=== PATIENT | male | born 1955 | race Caucasian/White ===

== ENCOUNTER 2017-02-09 09:39 | Emergency (ER) | payer BC ==
[2017-02-09 09:46] VITALS: RESP 16
--- NOTE | 2017-02-09 09:56 | CPEKG ---
Heart Rate: 79 RR Interval: 759 P-R Interval: 104 QRSD Interval: 86 QT Interval: 360 QTC Interval: 413 P [place]: 54 QRS [place]: 69 T Wave [place]: 68 EKG Severity - ABNORMAL ECG - EKG Impression: POSSIBLE ATRIAL ARRHYTHMIA, A-RATE 208 Electronically Signed By: Darron Keene 09-Feb-2017 10:16:39
[2017-02-09] MEDS ORDERED: ASPIRIN 81 MG CHEWABLE TAB PO ONE (10:00)
--- NOTE | 2017-02-09 10:20 | EDPHY ---
H & P Time Seen by Provider: 02/09/17 09:53 HPI/ROS: CHIEF COMPLAINT: Chest pain HISTORY OF PRESENT ILLNESS: Patient presents with left-sided chest pain which woke him up this morning in the middle of the night. He was in [place] and flew back last Wednesday. He described left-sided mild sharp chest pain near his left nipple which he says is "not bad unless I take a deep breath." Not associated with nausea or shortness of breath or arm or jaw symptoms. No fever or chills. Not coughing. No leg swelling. REVIEW OF SYSTEMS: Eye: no change in vision ENT: no sore throat Cardiac: HPI Pulmonary: no cough or SOB Abdomen: no vomiting, diarrhea, abdominal pain Musculoskeletal: No leg pain Skin: no rash Neuro: no headache Constitutional: no fever : no urinary symptoms A comprehensive 10 point review of systems is otherwise negative aside from elements mentioned in the history of present illness. PAST MEDICAL HISTORY: Includes laser surgery on his eyes and irritable bowel. Negative for diabetes or hypercholesterolemia or hypertension. Social history: Nonsmoker, no cocaine. No family history of venous thromboembolism. General Appearance: Alert and conversant, cooperative. Eyes: No scleral icterus. ENT, Mouth: Normal mucous membranes. Respiratory: Normal respiratory effort, breath sounds equal, lungs are clear to auscultation. Splinting slightly. Cardiovascular: Regular rate and rhythm. Gastrointestinal: Abdomen is soft and non tender. Neurological: Alert and oriented x3. Normally conversant. Face symmetric, normal movement and sensation in all extremities. Skin: Warm and dry, no rashes. Musculoskeletal: No calf tenderness. Psychiatric: Not agitated. Emergency Department course/MDM: History would certainly be atypical and low likelihood for acute coronary syndrome. Recent travel makes pulmonary embolism possible but low pretest probability. Plan for troponin and chest x-ray and D-dimer. 1135: Results discussed, likely muscular or pleurisy, stable for discharge. I think acute coronary syndrome is unlikely. Smoking Status: Never smoked Constitutional: Initial Vital Signs Temperature (C) 37 C 02/09/17 09:44 Heart Rate 80 02/09/17 09:44 Respiratory Rate 16 02/09/17 09:44 Blood Pressure 119/65 02/09/17 09:44 O2 Sat (%) 98 02/09/17 09:44 O2 Delivery Mode Room Air Allergies/Adverse Reactions: No Known Allergies Allergy (Unverified 02/09/17 09:47) Home Medications: Medication Instructions Recorded Elavi 02/09/17 Medical Decision Making - Diagnostics EKG Interpretation: 12-lead EKG interpreted by me; official reading is in trace master. My interpretation is sinus rhythm rate 79 no acute ischemic changes Imaging Results: Imaging Impressions Chest X-Ray 02/09/17 10:12 Impression: Clear lungs. No acute process. Differential Diagnosis: Differential diagnosis considered for chest pain including but not limited to myocardial ischemia, aortic dissection, pericarditis, pulmonary embolus, chest wall pain, pleural inflammation and pulmonary infectious causes. - Data Points Laboratory Results: Laboratory Results 02/09/17 10:00 02/09/17 10:00 02/09/17 02/09/17 02/09/17 10:20 10:00 10:00 WBC RBC Hgb Hct MCV MCH MCHC RDW Plt Count MPV Neut % (Auto) Lymph % (Auto) Coleman % (Auto) Eos % (Auto) Baso % (Auto) Nucleat RBC Rel Count Absolute Neuts (auto) Absolute Lymphs (auto) Absolute Monos (auto) Absolute Eos (auto) Absolute Basos (auto) Absolute Nucleated RBC Immature Gran % Immature Gran # D-Dimer < 0.27 ug/mLFEU ug/mLFEU REJ (0.00-0.50) Sodium 138 mEq/L mEq/L (134-144) Potassium 4.0 mEq/L mEq/L (3.5-5.2) Chloride 101 mEq/L mEq/L (97-110) Carbon Dioxide 25 mEq/l mEq/l (22-31) Anion Gap 12 mEq/L mEq/L (8-16) BUN 24 mg/dL H mg/dL (7-23) Creatinine 1.0 mg/dL mg/dL (0.7-1.3) Estimated GFR > 60 Glucose 76 mg/dL mg/dL (70-100) Calcium 9.4 mg/dL mg/dL (8.5-10.4) Troponin I < 0.012 ng/mL ng/mL (0-0.034) 02/09/17 10:00 WBC 6.96 10^3/uL 10^3/uL (3.80-9.50) RBC 5.06 10^6/uL 10^6/uL (4.40-6.38) Hgb 16.0 g/dL g/dL (13.7-17.5) Hct 46.4 % % (40.0-51.0) MCV 91.7 fL fL (81.5-99.8) MCH 31.6 pg pg (27.9-34.1) MCHC 34.5 g/dL g/dL (32.4-36.7) RDW 12.3 % % (11.5-15.2) Plt Count 230 10^3/uL 10^3/uL (150-400) MPV 10.5 fL fL (8.7-11.7) Neut % (Auto) 77.5 % H % (39.3-74.2) Lymph % (Auto) 12.2 % L % (15.0-45.0) Coleman % (Auto) 7.8 % % (4.5-13.0) Eos % (Auto) 1.3 % % (0.6-7.6) Baso % (Auto) 0.9 % % (0.3-1.7) Nucleat RBC Rel Count 0.0 % % (0.0-0.2) Absolute Neuts (auto) 5.40 10^3/uL 10^3/uL (1.70-6.50) Absolute Lymphs (auto) 0.85 10^3/uL L 10^3/uL (1.00-3.00) Absolute Monos (auto) 0.54 10^3/uL 10^3/uL (0.30-0.80) Absolute Eos (auto) 0.09 10^3/uL 10^3/uL (0.03-0.40) Absolute Basos (auto) 0.06 10^3/uL 10^3/uL (0.02-0.10) Absolute Nucleated RBC 0.00 10^3/uL 10^3/uL (0-0.01) Immature Gran % 0.3 % % (0.0-1.1) Immature Gran # 0.02 10^3/uL 10^3/uL (0.00-0.10) D-Dimer Sodium Potassium Chloride Carbon Dioxide Anion Gap BUN Creatinine Estimated GFR Glucose Calcium Troponin I Medications Given: Discontinued Medications Aspirin (Aspirin) 324 mg PO EDNOW ONE Stop: 02/09/17 10:01 Last Admin: 02/09/17 10:04 Dose: 324 mg Ibuprofen (Motrin) 600 mg PO EDNOW ONE Stop: 02/09/17 11:35 Last Admin: 02/09/17 11:50 Dose: 600 mg Departure - Departure Disposition: Home, Routine, Self-Care Clinical Impression: Chest pain Qualifiers: Chest pain type: unspecified Qualified Code(s): R07.9 - Chest pain, unspecified Condition: Good Instructions: Chest Pain (ED) Referrals: Viridiana Carrillo MD [Primary Care Provider] - As per Instructions
[2017-02-09 10:24] LABS: % IMMATURE GRANULYOCYTES 0.3 % (0.0-1.1); ABSOLUTE IMMATURE GRANULOCYTES 0.02 10^3/uL (0.00-0.10); ADD DIFF? NO; ADD MORPH? NO; ADD SCAN? NO; ATYPICAL LYMPHOCYTE FLAG 0 (0-99); FRAGMENT RBC FLAG 0 (0-99); HEMATOCRIT 46.4 % (40.0-51.0); LEFT SHIFT FLG 0 (0-99); LIPEMIA HEMOLYSIS FLAG 90 (0-99); MEAN CELL HEMOGLOBIN 31.6 pg (27.9-34.1); MEAN CELL HEMOGLOBIN CONCENTR. 34.5 g/dL (32.4-36.7); MEAN CELL VOLUME 91.7 fL (81.5-99.8); MEAN PLATELET VOLUME 10.5 fL (8.7-11.7); PLATELET CLUMPS FLAG 0 (0-99); PLATELET COUNT 230 10^3/uL (150-400); RED BLOOD CELL COUNT 5.06 10^6/uL (4.40-6.38); RED CELL DISTRIBUTION WIDTH 12.3 % (11.5-15.2)
[2017-02-09 10:32] LABS: ANION GAP 12 mEq/L (8-16); CALCIUM 9.4 mg/dL (8.5-10.4); CARBON DIOXIDE 25 mEq/l (22-31); CHLORIDE 101 mEq/L (97-110); GLOMERULAR FILTRATION RATE > 60; GLUCOSE 76 mg/dL (70-100); SODIUM 138 mEq/L (134-144)
[2017-02-09 10:43] LABS: TROPONIN I < 0.012 ng/mL (0-0.034)
[2017-02-09] MEDS ORDERED: IBUPROFEN 600 MG TAB PO ONE (11:34)
[2017-02-09 11:55] VITALS: BP 87/76; PULSE 66; TEMP 97.9; O2SAT 97
== END 2017-02-09 11:55 | disposition home or self-care (01) ==
DX: R07.9 Chest pain, unspecified (principal)

== ENCOUNTER → 2017-04-22 | Day surgery (SDC) | payer BC ==
[~2017-04-22] MED LIST: ALBUTEROL 3 ML DEYVIAL IH PRN; BACITRACIN ZINC 14.2 GM OINTTUBE TP ONE; BUPIVACAINE 0.5% 30 ML SDV ONE; DEXAMETHASONE 4 MG/ML VIAL IVP PRN; LR 1,000 ML IV ONE; LR 500 ML IV PRN; MIDAZOLAM 2 MG/2 ML VIAL IVP ONE; NALOXONE HCL 0.4 MG/ML INJ IVP PRN; ONDANSETRON 4 MG/2 ML VIAL IVP PRN; PHENYLEPHRINE HCL 100 MCG/ML SYR ONE; PROMETHAZINE HCL 25 MG/ML INJ IVP PRN; PROPOFOL/EMULSION 500 MG/50 ML BOTTLE IV ONE; ceFAZolin 2 GM/DEXTROSE 100 ML IV ONE; fentaNYL 100 MCG/2 ML INJ IVP PRN; fentaNYL 100 MCG/2 ML INJ ONE
--- NOTE | 2017-04-22 11:46 | GHP ---
[f rep st] PREOP HISTORY AND PHYSICAL DATE OF ADMISSION: 04/22/2017 ADMISSION DIAGNOSIS: Left epididymalgia with epididymal cysts. At the present time the gentleman has had a scrotal ultrasound that shows left epididymal cysts that are painful, has requested excision b ecause of the pain and discomfort. PAST MEDICAL HISTORY: Asthma, glaucoma, hypertension, BPH with obstruction, nocturia, prostatitis. PAST SURGICAL HISTORY: Basal cell carcinoma, eye surgery, inguinal hernia, MEDICATIONS: Amitriptyline and VSL #3. ALLERGIES: Flomax. FAMILY HISTORY: Hypertension. SOCIAL HISTORY: Current alcohol consumption. Former smoker. REVIEW OF SYSTEMS: Negative cardiac, respiratory. GI: Has had positive diarrhea. ENDOCRINE: Negative . PHYSICAL EXAMINATION: VITAL SIGNS: In the office blood pressure was 108/80, respirations normal, O2 saturation on room air 98.2, BMI 20.53. HEAD, EARS, EYES, NOSE, AND THROAT: Normal. CHEST: Clear. HEA RT: Regular rate and rhythm. ABDOMEN: Normal. No organomegaly, rebound or guarding. Lower extremities are normal. On exam he has multiple epididymal cysts. PLAN: At the present time, he is admitted for excision of that pathology. /[id number]/MODL
[2017-04-22 12:25] VITALS: PULSE 81
--- NOTE | 2017-04-22 12:37 | PDHPUP ---
History & Physical Update H&P update statement: This history and physical update is based on an assessment of the patient which was completed after admission or registration (within 24 hours), but prior to the surgery/procedure. H&P update: H&P reviewed & patient examined, no change in patient's condition since H&P completed
--- NOTE | 2017-04-22 14:05 | PDANEPAE ---
ANE History of Present Illness here for spermatocelectomy ANE Past Medical History - Cardiovascular History Hx Hypertension: No Hx Arrhythmias: No Hx Chest Pain: No Hx Coronary Artery / Peripheral Vascular Disease: No Hx CHF / Valvular Disease: No Hx Palpitations: No - Pulmonary History Hx COPD: No Hx Asthma/Reactive Airway Disease: Yes Hx Recent Upper Respiratory Infection: No Hx Oxygen in Use at Home: No Hx Sleep Apnea: No Sleep Apnea Screening Result - Last Documented: Negative Pulmonary History Comment: mild asthma no meds - Neurologic History Hx Cerebrovascular Accident: No Hx Seizures: No Hx Dementia: No - Endocrine History Hx Diabetes: No - Renal History Hx Renal Disorders: No - Liver History Hx Hepatic Disorders: No Hepatic History Comment: mono 2001, lver enzymes abnormal - Neurological & Psychiatric Hx Hx Neurological and Psychiatric Disorders: No - Cancer History Hx Cancer: No Cancer History Comment: basal cell carcinoma removed left side of nose, currently left jainism. - Congenital Disorder History Hx Congenital Disorders: No - GI History Hx Gastrointestinal Disorders: Yes Gastrointestinal History Comment: ibs with diahhrea - Other Health History Other Health History: none - Chronic Pain History Chronic Pain: Yes (testicular pain, radiates to left abd, back and down left leg ) - Surgical History Prior Surgeries: laser to eyes x 3 [id number] ANE Review of Systems Review of systems is: negative Review of Systems: - Exercise capacity Exercise capacity: >=4 METS METS (RN): 4 METS ANE Patient History - Allergies Allergies/Adverse Reactions: No Known Allergies Allergy (Unverified 02/09/17 09:47) - Home Medications Home medications: home medication list seen and reviewed Home Medications: Elavil 02/09/17 [Last Taken Unknown] - NPO status NPO Status: no food or drink >8 hours NPO Since - Liquids (Date): 04/22/17 NPO Since - Liquids (Time): 10:00 NPO Since - Solids (Date): 04/21/17 NPO Since - Solids (Time): 20:00 - Anes Hx Anes Hx: no prior problems - Smoking Hx Smoking Status: Never smoked - Family Anes Hx Family Hx Anesthesia Complications: none ANE Labs/Vital Signs - Vital Signs Blood Pressure: 118/69 Heart Rate: 81 Respiratory Rate: 16 O2 Sat (%): 97 Height: 172.72 cm Weight: 61.235 kg ANE Physical Exam - Airway Neck exam: FROM Mallampati Score: Class 1 - Pulmonary Pulmonary: no respiratory distress - Cardiovascular Cardiovascular: regular rate and rhythym - ASA Status ASA Status: II ANE Anesthesia Plan Anesthesia Plan: GA w LMA
--- NOTE | 2017-04-22 15:13 | POSTOPPROG ---
Post Op Note Date of Operation: 04/22/17 Surgeon: Robert Garcia Anesthesia: LMA Pre-op Diagnosis: LT SPERMATOCELE Post-op Diagnosis: SAME Indication: SAME Procedure: SPERMATOCELECTOMY Findings: SAME Inf/Abcess present in the surg proc area at time of surgery?: No EBL: Minimal Complications: NONE--DICTATED OP NOTE
[2017-04-22 15:37] VITALS: TEMP 97.7
[2017-04-22 16:18] VITALS: RESP 29
[2017-04-22 16:34] VITALS: BP 119/75; O2SAT 99
--- NOTE | 2017-04-22 17:15 | POSTANESTH ---
Post Anesthetic Evaluation Cardiovascular Status: Normal, Stable Respiratory Status: Normal, Stable Level of Consciousness/Mental Status: Can Participate in Eval Pain Control: Adequate, Prn Tx Ordered Nausea/Vomiting Control: Adequate, Prn Tx Ordered Complications Possibly Related to Anesthesia: None Noted
--- NOTE | 2017-04-22 21:19 | GOP ---
[f rep st] OPERATIVE REPORT DATE OF OPERATION: 04/22/2017 SURGEON: Robert Garcia MD PREOPERATIVE DIAGNOSIS: Left spermatocele. POSTOPERATIVE DIAGNOSIS: Left spermatocele. PROCEDURE PERFORMED: Left spermatocelectomy. FINDINGS: ESTIMATED BLOOD LOSS: Less than 5 mL. DESCRIPTION OF PROCEDURE: After undergoing appropriate general anesthesia, prepping and draping in n ormal sterile fashion, and time-out was made, he had a left scrotal incision that was carried through skin, dartos and tunica vaginalis. The testicle and epididymis were delivered from the left hemiscr otum and there was no abnormality of the testicle grossly, and then at that point, excised the tunics over the spermatocele and identified as it came out of the testis. Divided the epididymis and tied that with a 3-0 chromic, and then excised the tunica albuginea where the testis came out and oversewe d that with 3-0 chromic and hemostasis noted. Then reapproximated the tunica vaginalis in normal amarilys tomic position. The epididymis was sewn to the upper pole of the testicle once again to make it into normal anatomic position. There was no suggestion that the testicle would torse, and at that point the tunica vaginalis was closed. Testicle was brought back into the left hemiscrotum and the skin ap proximated with 3-0 chromic. We did use Marcaine for a spermatic cord block. The patient desires no narcotics. Recommend to use acetaminophen postop at his request. Specimen was sent to Pathology. /[id number]/MODL
== END | disposition home or self-care (01) ==
LOC: FSGY 11:13
PROVIDERS: ATTEND Specialist
PROC: 0VBK0ZZ Excision of Left Epididymis, Open Approach (ICD-10-PCS; principal; 2017-04-22 13:00)
DX: N43.40 Spermatocele of epididymis, unspecified (principal); N50.812 Left testicular pain; N40.1 Benign prostatic hyperplasia with lower urinary tract symptoms; R35.1 Nocturia; N13.8 Other obstructive and reflux uropathy; J45.909 Unspecified asthma, uncomplicated; H40.9 Unspecified glaucoma; I10 Essential (primary) hypertension; Z87.891 Personal history of nicotine dependence
CPT/HCPCS: J0690; J2370; J2704; J3010